=== PATIENT | female | born 1950 | race Caucasian/White ===

== ENCOUNTER 2017-11-17 00:45 | Emergency (ER) | payer MEDICARE, OTHER ==
[~2017-11-17] VITALS: Ht 157.5 cm; Wt 58.5 kg
[2017-11-17] MEDS ORDERED: normal saline 1000ML IV soln IVB ONE (01:25)
[2017-11-17] MEDS ORDERED: iohexol 300mg/ml 100ml inj. ONE (01:34)
[2017-11-17] MEDS ORDERED: LIDOcaine Viscous 15ml cup TP ONE (01:40)
[2017-11-17] MEDS ORDERED: SULF1TAB49 PO (01:49)
[2017-11-17] MEDS ORDERED: FLUC150T PO (01:49)
[2017-11-17] MEDS ORDERED: LIDO35.4 TP (01:49)
[2017-11-17 02:09] VITALS: BP 92/65
== END 2017-11-17 02:10 | disposition home or self-care (01) ==
LOC: ER 00:46
DX: R10.2 Pelvic and perineal pain (principal); R21 Rash and other nonspecific skin eruption; Z85.3 Personal history of malignant neoplasm of breast; Z90.710 Acquired absence of both cervix and uterus
CPT/HCPCS: 87070; 87077; 87186; 99284; J7030; Q9967